=== PATIENT | male | born 1935 | race American Indian/Alaskan Native ===

== ENCOUNTER 2017-02-20 06:38 | Day surgery (SDC) | payer MEDICARE ==
[2016-11-25 11:33] VITALS: BMI 26.1
[2017-02-20 07:31] VITALS: RESP 16
[2017-02-20] MEDS ORDERED: Propofol 10 mg/ml Inj (20 ML) ONE (08:50)
[2017-02-20] MEDS ORDERED: Sodium Chloride 0.9% 1,000 ML IV SCH (09:30)
[2017-02-20 09:39] VITALS: O2SAT 98
[2017-02-20 12:11] VITALS: BP 127/75; PULSE 54; TEMP 97.6
== END 2017-02-20 10:45 | disposition home or self-care (01) ==
LOC: ENDO 06:38
PROVIDERS: ATTEND Internal Medicine Gastroenterology
DX: K29.50 Unspecified chronic gastritis without bleeding (principal); K44.9 Diaphragmatic hernia without obstruction or gangrene; I25.10 Atherosclerotic heart disease of native coronary artery without angina pectoris; K21.9 Gastro-esophageal reflux disease without esophagitis; Z85.72 Personal history of non-Hodgkin lymphomas; Z86.018 Personal history of other benign neoplasm
CPT/HCPCS: 43239; 88305; 88342; J2001; J2704; J3010; J7040 ×2

== ENCOUNTER 2017-09-04 17:06 | Emergency (ER) | payer MEDICARE ==
[2017-09-04 17:27] VITALS: RESP 18; TEMP 97.8; BMI 26.1
[2017-09-04] MEDS ORDERED: TDAP Vaccine 0.5 mL Syr IM ONE (18:04)
--- NOTE | 2017-09-04 18:09 | ED PDOC ---
Arrival/HPI - General Chief Complaint: ENT Problem Historian: Patient - History of Present Illness Narrative History of Present Illness (Text): 09/04/17 18:05 82M presents to [facility] ED w/ left nostril epistaxsis that started earlier today that had not stopped for 1/2hr. At the time patient was using a q-tip for clean his nose and at that time is when bleeding started. Patient put gauze in nose, which stopped the bleed, then pulled and started bleeding profusely again. Patient was then taken in an ambulance and enroute patient applied pressure and bleeding ceased. Denies: fevers, chills, loss of consciousness, changes in vision, dizziness, numbness/tingling in extremities Time/Duration: Prior to Arrival, 1 hour Symptom Onset: Sudden Symptom Course: Resolved Activities at Onset: Light Past Medical History - Provider Review Nursing Documentation Reviewed: Yes - Travel History Have you recently traveled outside [place] w/in the past 3 mons?: No - Past History Past History: Non-Contributing - Infectious Disease Hx of Infectious Diseases: None - Cardiac Hx Hypertension: Yes - Neurological Hx Paralysis: No - Hematological/Oncological Hx Blood Disorders: Yes Hx Blood Transfusions: No Hx Blood Transfusion Reaction: No Hx Cancer: Yes (non hodgkins lymphoma) Hx Chemotherapy: No - Musculoskeletal/Rheumatological Hx Musculoskeletal Disorders: No - Psychiatric Hx Emotional Abuse: No Hx Physical Abuse: No Hx Substance Use: No - Surgical History Hx Coronary Stent: Yes - Anesthesia Hx Anesthesia: Yes Hx Anesthesia Reactions: No Hx Malignant Hyperthermia: No - Suicidal Assessment Feels Threatened In Home Enviroment: No Family/Social History - Physician Review Nursing Documentation Reviewed: Yes Family/Social History: Other (non-contributory) Smoking Status: Never Smoked Hx Alcohol Use: No Hx Substance Use: No Allergies/Home Meds Allergies/Adverse Reactions: Allergies No Known Allergies Allergy (Verified 09/04/17 17:36) Home Medications: Home Meds Medication Instructions Recorded Confirmed Magnesium Oxide [Mag-Ox] 400 mg PO BID 10/12/15 09/04/17 Multivitamin [One Daily] 1 tab PO QAM 10/12/15 09/04/17 Pantoprazole Sodium [Protonix] 40 mg PO QAM 10/12/15 09/04/17 Potassium Chloride [Klor-Con 10] 10 meq PO QAM 10/12/15 09/04/17 Pyridoxine [Vitamin B6] 100 mg PO QAM 10/12/15 09/04/17 Ergocalciferol (Vitamin D2) 50,000 iu PO SAT 03/21/16 09/04/17 [Vitamin D2] metOLazone [Zaroxolyn] 2.5 mg PO DAILY 09/04/17 09/04/17 Review of Systems - Physician Review All systems were reviewed & negative as marked: Yes - Review of Systems Constitutional: Normal Eyes: Normal ENT: Epistaxis (resolved, blood clot in left nostril) Respiratory: Normal. absent: SOB, Cough Cardiovascular: Normal. absent: Chest Pain, Palpitations Gastrointestinal: Normal. absent: Abdominal Pain, Stool Changes, Constipation, Hematemesis Skin: Normal. absent: Rash, Pruritis Neurological: Normal Physical Exam Vital Signs Reviewed: Yes Vital Signs Temp Pulse Resp BP Pulse Ox 09/04/17 17:20 97.8 F 61 18 125/78 96 Respiratory Rate: Normal Appearance: Positive for: Well-Appearing, Non-Toxic, Comfortable Mental Status: Positive for: Alert and Oriented X 3 - Systems Exam Head: Present: Atraumatic Pupils: Present: PERRL Extroacular Muscles: Present: EOMI Nose (External): Present: Other (Clot in Left nostril. No signs of acute trauma) . No: Contusion, Lesions Nose (Internal): Present: Epistaxis Respiratory/Chest: Present: Clear to Auscultation, Good Air Exchange, Accessory Muscle Use. No: Rales, Rhonchi, Tachypneic Cardiovascular: Present: Regular Rate and Rhythm, Normal S1, S2 Abdomen: Present: Normal Bowel Sounds. No: Tenderness, Distention, Peritoneal Signs Upper Extremity: Present: Normal Inspection Lower Extremity: Present: Edema. No: CALF TENDERNESS Neurological: Present: GCS=15 Skin: Present: Warm, Normal Color Psychiatric: Present: Alert, Oriented x 3 Medical Decision Making ED Course and Treatment: 09/04/17 18:14 During ED course, nosebleed is resolved. Vital signs normal. Denies dizziness, loss of consciousness Discussed and counseled the patient to not use Q-tips. can cause trauma. Recommended to use Vaseline to swab the inside of the nose. If nose bleed occurs in the future, showed how to properly achieve hemostasis Patient able to ambulate by himself - Medication Orders Current Medication Orders: Tetanus/Reduced Diphtheria/Acell Pertussis (Boostrix Vaccine Inj) 0.5 ml IM .ONCE ONE Stop: 09/04/17 18:05 Disposition/Present on Arrival - Present on Arrival Any Indicators Present on Arrival: No History of DVT/PE: No History of Uncontrolled Diabetes: No Urinary Catheter: No History of Decub. Ulcer: No History Surgical Site Infection Following: None - Disposition Have Diagnosis and Disposition been Completed?: Yes Diagnosis: Epistaxis Disposition: HOME/ ROUTINE Disposition Time: 18:17 Patient Plan: Discharge Condition: GOOD Discharge Instructions (ExitCare): Nosebleeds Print Language: BELARUSIAN Additional Instructions: Recommend to not use q-tips in nose, can cause trauma. Recommend every night to take a swab w/ Vaseline on the inside of the nose If bleeding from the nose does occur; do not put packing in the nose and pull it. Will cause additional bleeding Use the pincher technique and hold pressure for 2-5 minutes Referrals: Vadim Mathew MD [Primary Care Provider] - Follow up with primary
[2017-09-04 19:16] VITALS: BP 114/58; PULSE 64; O2SAT 98
== END 2017-09-04 19:16 | disposition home or self-care (01) ==
LOC: ED 17:06
DX: R04.0 Epistaxis (principal); Z23 Encounter for immunization; I10 Essential (primary) hypertension